=== PATIENT | female | born 1980 | race Caucasian/White ===

== ENCOUNTER 2017-08-18 12:39 | Emergency (ER) | payer SELFPAY, MEDICAID | END 2017-08-18 19:24 | disposition left against medical advice (07) | LOC: E/R 19:24 | DX: Z53.21 Procedure and treatment not carried out due to patient leaving prior to being seen by health care provider (principal) ==

== ENCOUNTER 2018-10-19 10:58 | Emergency (ER) | payer MEDICAID | END 2018-10-19 14:58 | disposition left against medical advice (07) | LOC: FTE 10:58 | DX: M25.522 Pain in left elbow (principal) | CPT/HCPCS: 99282; Z7502 ==